=== PATIENT | male | born 1940 | race Caucasian/White ===

== ENCOUNTER 2017-07-29 10:34 | Day surgery (SDC) | payer MEDICARE ==
[2017-07-19 10:28] LABS: BASOPHILS 0.7 %; BASOPHILS ABSOLUTE 0.05 10/3/uL (0.0-0.16); EOSINOPHILS 2.9 %; HEMATOCRIT 42.5 % (40.0-51.0); HEMOGLOBIN 14.7 g/dL (13.6-17.8); IMMATURE GRANULOCYTES 0.4 %; IMMATURE GRANULOCYTES ABSOLUTE 0.03 10/3/uL (0.0-0.11); LYMPHOCYTES 20.3 %; LYMPHOCYTES ABSOLUTE 1.42 10/3/uL (0.67-4.30); MEAN CORPUS HGB CONC 34.6 g/dL (32.0-36.0); MEAN CORPUSCULAR VOLUME 95.3 fL (80-100); MEAN PLATELET VOLUME 9.6 fL (9.2-13.0); MONOCYTES 8.9 %; MONOCYTES ABSOLUTE 0.62 10/3/uL (0.21-1.20); NEUTROPHILS 66.8 %; NEUTROPHILS ABSOLUTE 4.66 10/3/uL (2.02-8.40); PLATELET COUNT 166 10/3/uL (150-400); RBC DISTRIBUTION WIDTH 12.5 % (12.0-16.0); RED CELL COUNT 4.46 10/6/uL (4.7-6.1)
[2017-07-19 10:30] LABS: MANUAL DIFF NO %
[2017-07-19 10:50] LABS: A/G RATIO 1.3 (0.7-1.9); ALKALINE PHOSPHATASE 64 U/L (45-117); BUN (BLOOD UREA NITROGEN) 9 MG/DL (6-23); CALCIUM, SERUM 9.2 MG/DL (8.5-10.4); CHLORIDE, SERUM 102 MMOL/L (96-112); CO2 (CARBON DIOXIDE) 29 MMOL/L (24-34); CREATININE 0.97 MG/DL (0.70-1.30); GFR AFRICAN AMERICAN 88 ML/MIN (>=60); GFR NON AFRICAN AMERICAN 76 ML/MIN (>=60); GLOBULIN 3.2 G/DL (2.5-4.1); GLUCOSE, SERUM 80 MG/DL (60-99); POTASSIUM, SERUM 4.2 MMOL/L (3.5-5.3); SGOT(AST) 24 U/L (5-40); SGPT(ALT) 29 U/L (5-65); SODIUM, SERUM 138 MMOL/L (135-148); TOTAL BILIRUBIN 0.8 MG/DL (0-1.2); TOTAL PROTEIN 7.2 G/DL (6.0-8.5)
[~2017-07-29] VITALS: Ht 170.2 cm; Wt 83.5 kg
--- NOTE | ~2017-07-29 | PREOPHP ---
PreOp History and Physical [address] [place]. [address] NAME: ONEYDA HERNANDEZ : 42 [place] [facility] [place] [id number] AGE: 76 ADM/REG DATE : MR#: [id number] REPORT SERV DATE: 07/29/17 DICTATED BY: MIKE CARTER III DATE: 06/30/17 REPORT STATUS : Draft TRANSCRIBED BY: MODL DATE: 06/30/17 HISTORY OF PRESENT ILLNESS: This 76-year-old male comes to the operating room for open repair of symptomatic left inguinal hernia. The patient has a large left inguinal hernia. This has been present for at least one year. It has become larger with time and symptomatic in terms of local pain and discomfort. The patient has had no nausea, vomiting, or obstructive symptoms. He comes to the operating room now for open repair of this left inguinal hernia. PAST MEDICAL HISTORY: 1. Hypertension. 2. Hypercholesterolemia. 3. Hepatitis B. 4. History of thoracic aortic aneurysm. 5. History of hypertrophic cardiomyopathy. MEDICATIONS: Aspirin, calcium, iron, lisinopril, lovastatin, melatonin, metoprolol, and vitamins. FAMILY HISTORY: Positive for prostate cancer. SOCIAL HISTORY: No history of alcohol use. ALLERGIES: NONE. REVIEW OF SYSTEMS: The patient's 14-point review of systems is otherwise unremarkable. PHYSICAL EXAMINATION: General: He is a male, in no acute distress. He is alert and oriented x3. GENERAL: Blood pressure 122/77, pulse 62, temperature 98.1. HEENT: Unremarkable. Cranial nerves II through XII were normal. LUNGS: Clear. CARDIAC: Normal. ABDOMEN: Soft and nontender. The left groin has a moderate size inguinal hernia. This is reducible. The right groin is normal. EXTREMITIES: Normal. ASSESSMENT: A 76-year-old male with: 1. Enlarging symptomatic left inguinal hernia. 2. Hypertension. 3. Hypercholesterolemia. 4. Hepatitis B. 5. History of hypertrophic cardiomyopathy. PLAN: The patient comes to the operating room now for open left inguinal hernia repair. This procedure, the risks, benefits, and alternatives, including but not limited to the risk for bleeding, infection, pain, swelling, scarring, deformity to the area, seroma formation, PreOp History and Physical [address] [place]. [address] NAME: ONEYDA HERNANDEZ : 42 [place] [facility] [place] [id number] AGE: 76 ADM/REG DATE : MR#: [id number] REPORT SERV DATE: 07/29/17 DICTATED BY: MIKE CARTER III DATE: 06/30/17 REPORT STATUS : Draft TRANSCRIBED BY: FANI DATE: 06/30/17 hematoma formation, recurrence of the hernia, nerve injury, chronic paresthesia or pain in the thigh, scrotum, or groin, chronic neuralgia or neuroma, and unforeseen complications including deep venous thrombosis, pulmonary embolus, myocardial infarction, stroke, pneumonia, and , have been fully explained to the patient prior to surgery. The expected length of recovery has been explained. His questions have been answered. He clearly understands the risks and agrees to surgery as planned. RHJ/FANI Mike Carter III, M.D. / [id number] CC: Janessa Gamez III, M.D.
--- NOTE | ~2017-07-29 | OP ---
Record Of Operation [facility] [address] [place]. [address] NAME: ONEYDA HERNANDEZ : 42 STATUS : [facility]#: [id number] AGE: 76 ADM/REG DATE : 07/29/17 MR#: [id number] REPORT SERV DATE: 07/29/17 DICTATED BY: MIKE CARTER III DATE: 07/29/17 REPORT STATUS : Draft TRANSCRIBED BY: MODJose DATE: 07/29/17 DATE OF PROCEDURE: 07/29/2017 PREOPERATIVE DIAGNOSIS: Symptomatic left inguinal hernia. POSTOPERATIVE DIAGNOSIS: Symptomatic left inguinal hernia, direct left inguinal hernia. PROCEDURE: Open Gabi tension-free repair of left inguinal hernia with Prolene mesh. ANESTHESIA: General with intubation. COMPLICATIONS: None. ESTIMATED BLOOD LOSS: Less than 5 mL. SPECIMENS: None. DRAINS: None. LAP AND SPONGE COUNT: Correct x3. BRIEF HISTORY: This 76-year-old male presented with a symptomatic left inguinal hernia. It was felt that open left inguinal hernia repair was indicated. This procedure, the risks, benefits, and alternatives, including not limited to the risk for bleeding, infection, pain, swelling, scarring, deformity to the area, seroma formation, hematoma formation, recurrence of the hernia, nerve injury, chronic paresthesia, pain in the thigh, scrotum, or groin, chronic neuralgia or neuroma, and unforeseen complications including deep venous thrombosis, pulmonary embolus, myocardial infarction, stroke, pneumonia, , were fully explained to the patient prior to surgery. The expected length of recovery was explained. The patient's questions were answered. He understood the risks and agreed to surgery as planned. DESCRIPTION OF PROCEDURE: After being properly identified and after discussing risks of surgery with him again in the preoperative area, and after identifying the hernia with him in the preoperative area, the patient was taken to the operating room and placed in supine position on the operating room table. General anesthesia was administered, and he was intubated without difficulty. The abdomen and groins were prepped and draped sterilely in the usual fashion. After an appropriate "time-out" per JCAHO standards, a small oblique incision was made in the left groin from the pubic tubercle medially towards the anterior superior iliac spine laterally. The incision was continued through the subcutaneous tissue. Hemostasis was controlled with cautery. The external oblique fascia was identified. This fascia was opened along the direction of its fibers, so as to expose the inguinal canal. Using sharp dissection, the underlying ilioinguinal and genitofemoral nerves were identified. These were carefully isolated and protected to one side. Using sharp dissection, the spermatic cord and its contents were mobilized from the floor of canal. There was noted to be a fairly large direct hernia protruding through the floor of the canal, just medial to the internal ring. Using sharp dissection, this hernia was dissected Record Of Operation [facility] [address] [facility] [place]. [address] NAME: ONEYDA HERNANDEZ : 42 STATUS : [facility] PAT#: [id number] AGE: 76 ADM/REG DATE : 07/29/17 MR#: [id number] REPORT SERV DATE: 07/29/17 DICTATED BY: MIKE CARTER III DATE: 07/29/17 REPORT STATUS : Draft TRANSCRIBED BY: MODJose DATE: 07/29/17 free from the surrounding tissues. It was reduced back into the abdominal cavity. The spermatic cord was skeletonized, and it was noted that there was no indirect component to the hernia. The fascial defect in the floor of the canal was reapproximated with interrupted 2-0 silk sutures, which were placed between the shelving edge of the inguinal ligament laterally and the internal oblique and transversalis fascia medially. This resulted in good closure of the defect with minimal tension. There was no indirect component to the hernia. A Prolene mesh was then selected and cut to the appropriate size for the floor of the canal. A slit was made in the mesh laterally to incorporate the spermatic cord. The mesh was then secured to the floor of the canal with a running 2-0 Prolene suture which was placed between the edge of the mesh and shelving edge of the inguinal ligament laterally and the edge of the mesh and internal oblique and transversalis fascia medially. The mesh was secured lateral to the cord as well. Upon completion of this, the mesh lay nicely on the floor of canal, it was not twisted or kinked in any way, and it was not under any tension. The internal ring was noted not to be unduly tightened or narrowed, so that the spermatic vessels were not compromised. Hemostasis was assured. The ilioinguinal and genitofemoral nerves were again identified and checked to be certain that there were not encroached upon or injured. The external oblique fascia was closed with running 2-0 silk suture. The subcutaneous tissue was closed with a running 3-0 chromic suture, and the skin was closed with running subcuticular 4-0 Monocryl stitch. The incision was injected with 0.5% Marcaine. Dressings were applied, anesthesia was reversed, and the patient was taken to the recovery room in stable condition. He tolerated the procedure well. His family was informed the results of surgery. The patient was discharged when stable, comfortable, able to void, and ambulate. His family was advised to keep his wound clean and dry for [address] hours[address] He should not drive for at least three to four days after surgery or while using narcotics. The patient should resume his usual medications, and he should not perform any heavy lifting for five to six weeks. He has been asked to return in two weeks for followup or sooner for any fever, chills, wound drainage, or other problems prior to that time. He was given prescription for Percocet 7.5 one t.i.d., #12, as needed for pain, which he was advised not to use while driving. BERRY/FANI Mike Carter III, M.D. / [id number] CC: Mike Carter III, M.D. Record Of Operation [address] [address] NAME: ONEYDA HERNANDEZ : 42 STATUS : [facility] PAT#: [id number] AGE: 76 ADM/REG DATE : 07/29/17 MR#: [id number] REPORT SERV DATE: 07/29/17 DICTATED BY: MIKE CARTER III DATE: 07/29/17 REPORT STATUS : Draft TRANSCRIBED BY: MODL DATE: 07/29/17 Jose Plascencia M.D.
[~2017-07-29 10:34] MED LIST: ASAB PO; BEN25 PO; CALTRA600D PO; FERROUS SULF325 M1 PO; LOP25 PO; MELATONIN10 M2 PO; MEVACOR PO; MULTIPLE VIT PO; VITAMIN B-121000 MC1 PO; VITAMIN B-625 MG PO; ZESTORETIC PO; [UNRECOGNIZED DRUG - CODE] PO
== END 2017-07-29 19:23 | disposition home or self-care (01) ==
LOC: SDC 10:34
PROVIDERS: Surgery
PROC: 0YU60JZ Supplement Left Inguinal Region with Synthetic Substitute, Open Approach (ICD-10-PCS; principal; 2017-07-29 12:30)
DX: K40.90 Unilateral inguinal hernia, without obstruction or gangrene, not specified as recurrent (principal); I10 Essential (primary) hypertension; E78.00 Pure hypercholesterolemia, unspecified; I42.2 Other hypertrophic cardiomyopathy; I71.2 Thoracic aortic aneurysm, without rupture; D64.9 Anemia, unspecified; Z86.19 Personal history of other infectious and parasitic diseases; Z87.891 Personal history of nicotine dependence; Z91.030 Bee allergy status; Z98.41 Cataract extraction status, right eye; Z98.42 Cataract extraction status, left eye; Z90.89 Acquired absence of other organs; Z98.890 Other specified postprocedural states; Z79.82 Long term (current) use of aspirin; Z79.899 Other long term (current) drug therapy
CPT/HCPCS: 71020; 80053; 85025; 93005; C1781; J0690; J1885; J2250; J2370; J2405; J2710; J3010